=== PATIENT | female | born 1945 | race African-American/Black ===

== ENCOUNTER → 2017-11-20 | Outpatient (CLI) | payer OTHER, BC | END | disposition home or self-care (01) | DX: M16.12 Unilateral primary osteoarthritis, left hip (principal); R26.2 Difficulty in walking, not elsewhere classified; M25.552 Pain in left hip; M25.652 Stiffness of left hip, not elsewhere classified; Z74.1 Need for assistance with personal care; M62.81 Muscle weakness (generalized) | CPT/HCPCS: 97161 GP; 97165 GO; 97530 GP; 97535 GO; G8978 GP; G8979 GP; G8980 GP; G8987 GO; G8988 GO; G8989 GO ==

== ENCOUNTER 2017-12-10 21:16 | Inpatient (IN) | payer OTHER, BC ==
[~2017-12-10] VITALS: Ht 157.5 cm; Wt 73.4 kg
[~2017-12-10 21:16] MED LIST: ACIPHEX20 MG PO; BIOFREEZE; FLONASE ALLERG9.9 ML BOTH NARES; GLUCOTROL XL5 MG PO; IRON325 M1 PO; LISINOPRIL-HCT1 EACH PO; MINOCYCLINE HCL50 M1 PO; MOTRIN600 MG PO; POTASSIUM CHLO10 ME4 PO; TOPROL XL100 MG PO; TURMERIC500 MG PO; VALIUM10 MG PO
[2017-12-11 07:40] VITALS: BP 190/81
[2017-12-11 07:52] LABS: CHLORIDE 113 MEQ/L (99-109); GFR ESTIMATE (CALCULATED) 57 mL/min/; GLUCOSE 174 mg/dL (70-99); SODIUM 143 MEQ/L (136-147); UREA NITROGEN (BUN) 30 mg/dL (9-23)
[2017-12-11 07:56] LABS: CREATININE 1.2 MG/DL (0.6-1.3)
[2017-12-11 12:52] LABS: HEMATOCRIT 32.4 % (36.0-46.0); HEMOGLOBIN 10.2 G/DL (11.9-15.5); MCHC 31.5 G/DL (30.0-36.0); MCV 95.3 FL (83-99); PLATELET COUNT 176 K/uL (156-360); RBC DIS.WIDTH-CV 13.1 % (11.8-14.6); RBC DIS.WIDTH-SD 45.8 % (39-53); WHITE BLOOD COUNT 9.3 K/uL (4.1-10.2)
[2017-12-11 14:01] VITALS: BP 169/75
[2017-12-11 15:39] VITALS: BP 145/65
[2017-12-11 20:31] VITALS: BP 157/72
[2017-12-12 00:27] VITALS: BP 143/67
[2017-12-12 04:30] VITALS: BP 117/58
[2017-12-12 06:38] LABS: CHLORIDE 109 MEQ/L (99-109); CREATININE 1.1 MG/DL (0.6-1.3); GFR ESTIMATE (CALCULATED) > 59 mL/min/; GLUCOSE 173 mg/dL (70-99); POTASSIUM 3.8 MEQ/L (3.7-5.4); SODIUM 138 MEQ/L (136-147); UREA NITROGEN (BUN) 25 mg/dL (9-23)
[2017-12-12 08:00] VITALS: BP 110/57; BP 142/65
[2017-12-12 11:14] LABS: HEMATOCRIT 27.6 % (36.0-46.0); HEMOGLOBIN 8.8 G/DL (11.9-15.5); MCV 95.5 FL (83-99)
[2017-12-12 12:00] VITALS: BP 111/53
[2017-12-12 15:42] VITALS: BP 131/58
[2017-12-12 20:00] VITALS: BP 112/57
[2017-12-13 00:20] VITALS: BP 114/55
[2017-12-13 04:20] VITALS: BP 142/65
[2017-12-13 08:13] VITALS: BP 129/60
[2017-12-13] MEDS ORDERED: HYDROCODON-ACE1 EAC7 PO (08:45)
[2017-12-13] MEDS ORDERED: LOVENOX40 MG/0.4 SC (08:45)
[2017-12-13] MEDS ORDERED: SENNA PLUS TAB1 EACH PO (08:45)
[2017-12-13 12:04] VITALS: BP 162/71
== END 2017-12-13 15:23 | DRG 470 ==
LOC: ENRESERV 21:16 → 2SOUTH 12-11 06:27 → 3WEST 12-11 06:27 → 2SOUTH 12-11 15:32 → 3WEST 12-13 15:23
PROVIDERS: Orthopaedic Surgery
PROC: 0SRB02A Replacement of Left Hip Joint with Metal on Polyethylene Synthetic Substitute, Uncemented, Open Approach (ICD-10-PCS; principal; 2017-12-11)
DX: M16.12 Unilateral primary osteoarthritis, left hip (principal); I10 Essential (primary) hypertension; E11.9 Type 2 diabetes mellitus without complications; Z79.4 Long term (current) use of insulin
CPT/HCPCS: 73501; 80048; 82948; 85014; 85018; 85027; C1713; J0131; J0330; J0690; J1170; J1650; J1815; J2250; J2405; J2710; J3010; J7050; J7643